=== PATIENT | female | born 1940 | race Caucasian/White ===

== ENCOUNTER → 2020-06-30 | Outpatient (CLI) | payer MEDICARE ==
[~2020-06-30] MED LIST: ATOR40TA59 PO; LEVO75TA5 PO
--- NOTE | 2020-06-30 12:16 | KCIC ---
Exam Date: 06/30/2020 9:58 AM MRI RIGHT LOWER EXTREMITY JOINT W Indication: Reason: Rt knee abnormality along proximal tibial metaphysis. Recent falls. / Spl. Instru ctions: / History: Pain medial aspect, painful to walk. TECHNIQUE: Routine multiplanar MR imaging of the knee was performed without contrast. COMPARISON: Radiographs from June 09, 2020 FINDINGS: Complex tearing seen in the body medial meniscus extending into the posterior horn. There is blunting of the body of the lateral meniscus suggesting a small radial tear. Degenerative si gnal seen in the posterior horn of the lateral meniscus. The anterior cruciate ligament, posterior cruciate ligament, medial collateral ligament, and lateral collateral ligament complex are intact. Patellofemoral extensor mechanism and popliteus tendon are w ithin normal limits. There is mild chondral thinning in the medial compartment. No full-thickness chondral defect is ident ified. Cartilage in the patellofemoral and lateral compartments is intact. There is a 1.5 x 0.8 x 0.6 cm cortical lesion in the posterolateral aspect of the proximal tibial met aphysis. This follows fat signal on all sequences with a thin low signal border. 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 No acute fracture is seen. Physiologic joint fluid is present. There is no popliteal cyst. 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 Complex tearing involving the body of the medial meniscus extending to the posterior horn. Small radial tear in the body of the lateral meniscus. Mild chondral thinning in the medial compartment. No full-thickness chondral loss. Electronically signed by: Jonathan Lawson MD (06/30/2020 12:14 PM) [id number]
== END ==
LOC: KCIC MRI 09:54
PROVIDERS: ATTEND Family Medicine
DX: S83.281A Other tear of lateral meniscus, current injury, right knee, initial encounter (principal); X58.XXXA Exposure to other specified factors, initial encounter; Y93.89 Activity, other specified; Y92.89 Other specified places as the place of occurrence of the external cause; Y99.8 Other external cause status
CPT/HCPCS: 73721